=== PATIENT | female | born 1970 | race Caucasian/White ===

== ENCOUNTER 2016-12-03 20:36 | Inpatient (IN) | payer BC ==
[2016-12-03] MEDS ORDERED: 0.9 % SODIUM CHLORIDE 1,000 ML BAG IV ONE (20:50)
[2016-12-03 21:02] LABS: EOS % 1.3 % (0-6); GRAN % 55.5 % (47-80); HEMATOCRIT 37.3 % (35.0-47.0); HEMOGLOBIN 12.1 gm/dl (11.6-16.0); LYMPH % 34.7 % (16-45); MEAN CELL VOLUME 83.1 fl (81-97); MEAN CORPUSCULAR HEMOGLOBIN 26.9 pg (27-33); MEAN CORPUSCULAR HGB CONC 32.4 g/dl (32-36); MEAN PLATELET VOLUME 9.5 fl (7.4-10.4); MONO % 7.5 % (0-9); PLATELET COUNT 413 K/uL (130-400); RED BLOOD COUNT 4.49 M/uL (3.80-5.40); RED CELL DISTRIBUTION WIDTH 19.8 % (11.5-14.5); WHITE BLOOD COUNT W/O DIFF 6.2 K/uL (4.2-12.2)
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
[2016-12-03 21:11] LABS: ALB/GLOB RATIO 1.5 (1.1-1.8); ALBUMIN 4.5 gm/dL (3.5-5.0); ALKALINE PHOSPHATASE 72 U/L (38-126); ALT/SGPT 24 U/L (9-52); ANION GAP 14.9 (7-16); AST/SGOT 19 U/L (14-36); BILIRUBIN,TOTAL 0.61 mg/dL (0.2-1.3); BLOOD UREA NITROGEN 10 mg/dL (7-17); CARBON DIOXIDE 20.1 mmol/L (22-30); CREATININE 0.7 mg/dL (0.52-1.04); EST GLOMERULAR FILTRATION RATE > 60 ml/min; GLUCOSE,RANDOM 109 mg/dL (70-110); TOTAL PROTEIN 7.6 gm/dL (6.3-8.2)
[2016-12-03 21:13] LABS: ACETAMINOPHEN < 10.0 ug/mL (10.0-30.0); ALCOHOL 0.158 g/dL (0-0.010); SALICYLATE < 1.0 mg/dL (2.8-20.0)
[2016-12-03] MEDS ORDERED: 0.9 % SODIUM CHLORIDE 1000ML 1,000 ML IV ONE (21:21)
[2016-12-03 21:46] LABS: URINE APPEARANCE CLEAR; URINE BILIRUBIN NEGATIVE (NEGATIVE); URINE BLOOD NEGATIVE (NEGATIVE); URINE COLOR YELLOW; URINE GLUCOSE (UA) NEGATIVE (NEGATIVE); URINE KETONE NEGATIVE (NEGATIVE); URINE LEUKOCYTE ESTERASE NEGATIVE (NEGATIVE); URINE NITRITE NEGATIVE (NEGATIVE); URINE PROTEIN NEGATIVE (NEGATIVE); URINE UROBILINOGEN 0.2 E.U./dL (0.20 - 1.00)
[2016-12-03 21:53] LABS: AMPHETAMINE SCREEN URINE NOT DETECTED; BARBITURATE SCREEN URINE NOT DETECTED; BENZODIAZEPINE SCREEN URINE NOT DETECTED; COCAINE SCREEN URINE DETECTED; METHADONE SCREEN URINE NOT DETECTED; METHAMPHETAMINE SCREEN NOT DETECTED; OPIATE SCREEN URINE NOT DETECTED; OXYCODONE SCREEN URINE NOT DETECTED; PHENCYCLIDINE SCREEN URINE NOT DETECTED; PROPOXYPHENE SCREEN URINE NOT DETECTED; THC SCREEN URINE NOT DETECTED; TRICYCLIC ANTIDEPRESSANT SCRN DETECTED
[2016-12-04] MEDS ORDERED: 0.9 % SODIUM CHLORIDE 1000ML 1,000 ML IV PRN (00:05)
[2016-12-04 06:35] LABS: BASO % 0.4 % (0-6); EOS % 1.3 % (0-6); GRAN % 62.8 % (47-80); HEMATOCRIT 34.4 % (35.0-47.0); HEMOGLOBIN 11.2 gm/dl (11.6-16.0); LYMPH % 27.9 % (16-45); MEAN CELL VOLUME 83.7 fl (81-97); MEAN CORPUSCULAR HGB CONC 32.6 g/dl (32-36); MEAN PLATELET VOLUME 9.7 fl (7.4-10.4); MONO % 7.6 % (0-9); PLATELET COUNT 404 K/uL (130-400); RED BLOOD COUNT 4.11 M/uL (3.80-5.40); RED CELL DISTRIBUTION WIDTH 20.4 % (11.5-14.5); WHITE BLOOD COUNT W/O DIFF 7.6 K/uL (4.2-12.2)
[2016-12-04 06:40] LABS: ANION GAP 9.9 (7-16); BLOOD UREA NITROGEN 10 mg/dL (7-17); CARBON DIOXIDE 21.1 mmol/L (22-30); CREATININE 0.7 mg/dL (0.52-1.04); EST GLOMERULAR FILTRATION RATE > 60 ml/min; GLUCOSE,RANDOM 101 mg/dL (70-110)
[2016-12-04 06:41] LABS: MEAN CORPUSCULAR HEMOGLOBIN 27.2 pg (27-33)
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
[2016-12-04 11:40] LABS: ANION GAP 11.6 (7-16); BLOOD UREA NITROGEN 10 mg/dL (7-17); CARBON DIOXIDE 20.4 mmol/L (22-30); CREATININE 0.8 mg/dL (0.52-1.04); EST GLOMERULAR FILTRATION RATE > 60 ml/min; GLUCOSE,RANDOM 95 mg/dL (70-110)
[2016-12-04] MEDS ORDERED: SOD CHLOR 0.9% WITH KCL 40MEQ 40 MEQ/1,000 ML IV.SOLN IV SCH (12:00)
[2016-12-04] MEDS: 0.9 % SODIUM CHLORIDE 1000ML 1,000 ML IV PRN ×2 (12:22→21:13)
[2016-12-04] MEDS ORDERED: DIPHENHYDRAMINE HCL IV 50 MG/ML VIAL IVP PRN (21:34)
[2016-12-04 23:01] LABS: ANION GAP 9.4 (7-16); BLOOD UREA NITROGEN 7 mg/dL (7-17); CARBON DIOXIDE 21.6 mmol/L (22-30); CREATININE 0.8 mg/dL (0.52-1.04); EST GLOMERULAR FILTRATION RATE > 60 ml/min; GLUCOSE,RANDOM 86 mg/dL (70-110)
[2016-12-04] MEDS: LORAZEPAM 2 MG/ML VIAL IV PRN (23:11)
[2016-12-05] MEDS: 0.9 % SODIUM CHLORIDE 1000ML 1,000 ML IV PRN (05:32)
--- NOTE | 2016-12-05 07:43 | RADIOLOGY REPORT ---
EXAM: CHEST HISTORY: OVERDOSE. PATIENT UNRESPONSIVE. TECHNIQUE: A single view of the chest was obtained. Comparison: 03/14/16. FINDINGS: The heart is not enlarged and there is no mediastinal mass. No infiltrate or vascular congestion identified. IMPRESSION: UNREMARKABLE CHEST EXAMINATION. JOB NUMBER: [id number] MTDD
[2016-12-05] MEDS: LORAZEPAM 2 MG/ML VIAL IV PRN (08:26)
--- NOTE | 2016-12-05 08:40 | Physician Progress Note ---
Subjective - Date Date of Physician Progress Note: 12/05/16 - Subjective Subjective Comment: Patient is awake and alert today. She has coherent speech but thought process remains abnormal. Patient has been talking about going to boot camp classes, eating tv dinners, etc. Does not respond directly to questions. She is following commands and has been up with assistance to the bathroom. she continues to have some spontaneous dystonic movements. wringing of the hands, and has been trying to get out of bed and pull her IV out several times. Objective - Vital Signs Vital Signs: Vital Signs - Last 24 Hrs Temp Pulse Resp BP Pulse Ox 12/05/16 04:00 99.1 F 89 20 132/92 100 12/04/16 21:04 98.1 F 99 H 16 121/87 100 12/04/16 21:00 95 H 12/04/16 18:00 98.3 F 95 H 18 141/89 99 12/04/16 14:24 98.8 F 105 H 14 145/80 100 12/04/16 12:19 98.1 F 119 H 14 139/69 100 - General General Appearance: Alert, Cooperative, No acute distress Limitations: Altered mental status - Head Head exam: Atraumatic, Normocephalic - Eye Eye exam: Normal appearance, PERRL - ENT Throat exam: Normal inspection. negative: Tonsillar erythema, Tonsillar exudate - Neck Neck exam: Normal inspection, Full ROM. negative: Tenderness - Respiratory Respiratory exam: Normal lung sounds bilaterally. negative: Respiratory distress - Cardiovascular Cardiovascular Exam: Regular rate, Normal rhythm, Normal heart sounds - GI/Abdominal GI/Abdominal exam: Soft, Normal bowel sounds. negative: Tenderness - Neurological Neurological exam: Altered, CN II-XII intact, Reflexes normal, Other (has some spontaneous dystonic movement ). negative: Alert, Normal gait, Oriented X3 Assessment and Plan - Assessment and Plan (1) Antipsychotic overdose Current Visit: Yes Status: Acute Qualifiers: Encounter type: initial encounter Injury intent: intentional self-harm Qualified Code(s): T43.502A - Poisoning by unspecified antipsychotics and neuroleptics, intentional self-harm, initial encounter Base Code: T43.501A - POISONING BY UNSP ANTIPSYCHOT/NEUROLEPT, ACCIDENTAL, INIT Comment: 12/05/16- improved. patient is awake and alert today. she is tolerating clear liquids. had anand removed and is urinating normally, not incontinent. No BM as of yet. Blood pressure, temp, heart rate and respiratory rate are all within normal. She does have some spontanous dystonic movements on exam. no signs of neuroleptic malignant syndrome. once patient is stabilized she will need to be transfered to inpatient psychiatry unit. Case management working on placement -potassium low at 3.4 today. will add 20meq per liter NS -WBC up to 14 likely reactive. will get UA with recent anand use. anand has been removed and urinating normally -continue cardiac monitoring. repeat EKG today. -continue IV NS at 125cc/hr -BMP q8H. -seizure precautions -benadryl 50mg IV q8H for extrapyramidal symptoms -lorazapam 1mg IV q8H for severe agitation -nursing to contact me if she has increased temperature, profuse sweating, limb rigidity, worsening tachycardia, seizure like activity. (2) Full code status Current Visit: Yes Status: Acute Base Code: Z78.9 - OTHER SPECIFIED HEALTH STATUS Comment: 12/05/16- patient is full code (3) DVT prophylaxis Current Visit: Yes Status: Acute Base Code: [id number] - Comment: 12/05/16- lovenox 40mg sq daily Results - Labs Result Diagrams: 12/05/16 09:05 12/05/16 09:05 Labs Last 24 Hours: Laboratory Results - last 24 hr 12/04/16 12/04/16 11:20 22:49 Sodium 142 138 Potassium 4.3 4.0 Chloride 110 H 107 Carbon Dioxide 20.4 L 21.6 L Anion Gap 11.6 9.4 BUN 10 7 Creatinine 0.8 0.8 Estimated GFR > 60 > 60 Random Glucose 95 86 Calcium 8.6 8.8 DVT/PE Assessment - Risk for VTE Risk for VTE: No Risk Level: High Risk Assessment Date: 12/04/16 Risk Assessment Time: 21:42 VTE Orders Placed or Will Be Placed: Yes - Active Medicaitons Current Medications: Current Medications Diphenhydramine HCl (Benadryl Iv) 50 mg IVP Q8H JESSICA Sodium Chloride () 1,000 mls @ 125 mls/hr IV .Q8H PRN PRN Reason: LARGE VOLUME IV Last Admin: 12/05/16 05:32 Dose: 125 mls/hr Lorazepam (Ativan) 1 mg IV Q8H PRN PRN Reason: Agitation Last Admin: 12/05/16 08:26 Dose: 1 mg AMI Plan - Labs Result Diagrams: 12/05/16 09:05 12/05/16 09:05
[2016-12-05] MEDS ORDERED: DIPHENHYDRAMINE HCL IV 50 MG/ML VIAL IVP SCH (08:45)
[2016-12-05 09:25] LABS: BLOOD UREA NITROGEN 5 mg/dL (7-17); CREATININE 0.7 mg/dL (0.52-1.04); EST GLOMERULAR FILTRATION RATE > 60 ml/min; GLUCOSE,RANDOM 102 mg/dL (70-110)
[2016-12-05 09:29] LABS: RED BLOOD COUNT 4.05 M/uL (3.80-5.40); WHITE BLOOD COUNT W/O DIFF 14.8 K/uL (4.2-12.2)
[2016-12-05 09:30] LABS: HEMATOCRIT 33.8 % (35.0-47.0); MEAN CELL VOLUME 83.5 fl (81-97); MEAN CORPUSCULAR HEMOGLOBIN 27.2 pg (27-33); MEAN CORPUSCULAR HGB CONC 32.5 g/dl (32-36); MEAN PLATELET VOLUME 9.1 fl (7.4-10.4); PLATELET COUNT 377 K/uL (130-400); RED CELL DISTRIBUTION WIDTH 20.6 % (11.5-14.5)
[2016-12-05] MEDS ORDERED: LORAZEPAM 2 MG/ML VIAL IV PRN (13:07)
[2016-12-05] MEDS ORDERED: DIPHENHYDRAMINE HCL IV 50 MG/ML VIAL IVP PRN (13:07)
[2016-12-05] MEDS ORDERED: LORAZEPAM 2 MG/ML VIAL IV ONE (13:27)
[2016-12-05] MEDS: POTASSIUM CHL 20MEQ IN 1L NS 20 MEQ/1,000 ML BAG IV SCH ×2 (13:49→22:27)
[2016-12-05 14:34] LABS: URINE APPEARANCE CLEAR; URINE BILIRUBIN NEGATIVE (NEGATIVE); URINE BLOOD SMALL (NEGATIVE); URINE COLOR YELLOW; URINE GLUCOSE (UA) NEGATIVE (NEGATIVE); URINE KETONE NEGATIVE (NEGATIVE); URINE LEUKOCYTE ESTERASE NEGATIVE (NEGATIVE); URINE NITRITE NEGATIVE (NEGATIVE); URINE PROTEIN NEGATIVE (NEGATIVE); URINE UROBILINOGEN 0.2 E.U./dL (0.20 - 1.00)
[2016-12-05 14:45] LABS: URINE BACTERIA FEW; URINE WBC 0 - 2 (0-2/hpf)
--- NOTE | 2016-12-06 09:55 | Discharge Summary ---
Providers Discharge Summary Date: 12/06/16 Date of admission: 12/04/16 00:15 Attending physician: CORDELL RUEDA Consults: Consult Orders 12/04/16 21:53 Consult NOW Consulting Provider: [facility] Mental/Behavioral Health Physician Instructions: social work consult for inpatient psych placement Reason For Exam: suicidal overdose Physical Exam - Vital Signs Vital Signs: Vital Signs - Last 24 Hrs Temp Pulse Resp BP Pulse Ox 12/06/16 00:00 87 18 120/89 99 12/05/16 21:00 86 12/05/16 16:00 97.3 F L 106 H 20 127/81 97 12/05/16 12:00 97.9 F 103 H 22 112/84 98 - General General Appearance: Alert, Cooperative, No acute distress Limitations: Altered mental status - Head Head exam: Atraumatic, Normocephalic - Eye Eye exam: Normal appearance, PERRL - ENT Throat exam: Normal inspection. negative: Tonsillar erythema, Tonsillar exudate - Neck Neck exam: Normal inspection, Full ROM. negative: Tenderness - Respiratory Respiratory exam: Normal lung sounds bilaterally. negative: Respiratory distress - Cardiovascular Cardiovascular Exam: Regular rate, Normal rhythm, Normal heart sounds - GI/Abdominal GI/Abdominal exam: Soft, Normal bowel sounds. negative: Tenderness - Neurological Neurological exam: Altered, CN II-XII intact, Reflexes normal, Other (has some spontaneous dystonic movement ). negative: Alert, Normal gait, Oriented X3 Hospitalization - Hospitalization Admission Diagnosis: 1. Acute Overdose due to Suicidal Ideation. - Problem List/Discharge Diagnosis (1) Antipsychotic overdose Current Visit: Yes Status: Acute Discharge Diagnosis: Encounter type: initial encounter Injury intent: intentional self-harm Qualified Code(s): T43.502A - Poisoning by unspecified antipsychotics and neuroleptics, intentional self-harm, initial encounter Base Code: T43.501A - POISONING BY UNSP ANTIPSYCHOT/NEUROLEPT, ACCIDENTAL, INIT Comment: 12/06/16- improved. patient is awake and alert today. she is tolerating clear liquids. had anand removed and is urinating normally, not incontinent. No BM as of yet. Blood pressure, temp, heart rate and respiratory rate are all within normal. Alert and oriented x 3 for first time. aware she had been halucinating prior. no signs of neuroleptic malignant syndrome. since patient now stabilized will transfer to inpatient psychiatry unit. Case management working on placement -potassium low at 3.4 today. will add 20meq per liter NS -WBC up to 14 likely reactive. will get UA with recent anand use. anand has been removed and urinating normally -continue cardiac monitoring. repeat EKG today. -continue IV NS at 125cc/hr -BMP q8H. -seizure precautions -benadryl 50mg IV q8H for extrapyramidal symptoms -lorazapam 1mg IV q8H for severe agitation -nursing to contact me if she has increased temperature, profuse sweating, limb rigidity, worsening tachycardia, seizure like activity. (2) Overdose Current Visit: Yes Status: Acute Discharge Diagnosis: Encounter type: initial encounter Injury intent: intentional self-harm Qualified Code(s): T50.902A - Poisoning by unspecified drugs, medicaments and biological substances, intentional self-harm, initial encounter Base Code: T50.901A - POISONING BY UNSP DRUG/MEDS/BIOL SUBST, ACCIDENTAL, INIT (3) Bipolar 1 disorder Current Visit: No Status: Acute Base Code: F31.9 - BIPOLAR DISORDER, UNSPECIFIED - Hospitalization Course Disposition: Psychiatric Hospital Procedures: Cardiology Procedures 12/04/16 02:11 EKG NOW 12/05/16 12:14 EKG NOW Abnormal Labs: Abnormal Lab Results 12/04/16 12/04/16 12/04/16 Range/Units 06:05 06:05 11:20 WBC (4.2-12.2) K/uL Hgb 11.2 L (11.6-16.0) gm/dl Hct 34.4 L (35.0-47.0) % RDW 20.4 H (11.5-14.5) % Plt Count 404 H (130-400) K/uL Neutrophils % (47-80) % Lymphocytes % (16-45) % Potassium (3.5-5.1) mmol/L Chloride 111 H 110 H (98-107) mmol/L Carbon Dioxide 21.1 L 20.4 L (22-30) mmol/L BUN (7-17) mg/dL Calcium 8.2 L (8.5-10.1) mg/dL Urine Blood (NEGATIVE) 12/04/16 12/05/16 12/05/16 Range/Units 22:49 09:05 09:05 WBC 14.8 H (4.2-12.2) K/uL Hgb 11.0 L (11.6-16.0) gm/dl Hct 33.8 L (35.0-47.0) % RDW 20.6 H (11.5-14.5) % Plt Count (130-400) K/uL Neutrophils % 88.0 H (47-80) % Lymphocytes % 8.0 L (16-45) % Potassium 3.4 L (3.5-5.1) mmol/L Chloride (98-107) mmol/L Carbon Dioxide 21.6 L (22-30) mmol/L BUN 5 L (7-17) mg/dL Calcium (8.5-10.1) mg/dL Urine Blood (NEGATIVE) 12/05/16 Range/Units 14:20 WBC (4.2-12.2) K/uL Hgb (11.6-16.0) gm/dl Hct (35.0-47.0) % RDW (11.5-14.5) % Plt Count (130-400) K/uL Neutrophils % (47-80) % Lymphocytes % (16-45) % Potassium (3.5-5.1) mmol/L Chloride (98-107) mmol/L Carbon Dioxide (22-30) mmol/L BUN (7-17) mg/dL Calcium (8.5-10.1) mg/dL Urine Blood Small H (NEGATIVE) Condition at Discharge: (2) Stable Discharge Medications - Discharge Medications Home Medications: Ambulatory Orders Duloxetine HCl [Cymbalta] 60 mg PO BID 04/21/14 [Last Taken 12/03/16] Discharge Plan - Discharge Instructions Activity at Discharge: Increase Activity as Tolerated Diet at Discharge: Advance to Usual Diet
[2016-12-06] MEDS: POTASSIUM CHL 20MEQ IN 1L NS 20 MEQ/1,000 ML BAG IV SCH ×3 (17:14→23:24)
[2016-12-06 18:33] LABS: ANION GAP 12.5 (7-16); BLOOD UREA NITROGEN 9 mg/dL (7-17); CARBON DIOXIDE 24.5 mmol/L (22-30); CREATININE 0.7 mg/dL (0.52-1.04); EST GLOMERULAR FILTRATION RATE > 60 ml/min; GLUCOSE,RANDOM 92 mg/dL (70-110)
[2016-12-07 06:34] LABS: ANION GAP 14.9 (7-16); BLOOD UREA NITROGEN 12 mg/dL (7-17); CARBON DIOXIDE 21.1 mmol/L (22-30); CREATININE 0.8 mg/dL (0.52-1.04); EST GLOMERULAR FILTRATION RATE > 60 ml/min; GLUCOSE,RANDOM 75 mg/dL (70-110)
== END 2016-12-07 11:44 | DRG 918 ==
LOC: ER 20:36 → MEDSURG 12-04 00:15 → OBSVTOIN 12-04 00:15 → MEDSURG 12-04 22:28
PROVIDERS: ADMIT Family Medicine; ATTEND Family Medicine
DX: T43.592A Poisoning by other antipsychotics and neuroleptics, intentional self-harm, initial encounter (principal); T43.212A Poisoning by selective serotonin and norepinephrine reuptake inhibitors, intentional self-harm, initial encounter; T51.92XA Toxic effect of unspecified alcohol, intentional self-harm, initial encounter; F31.9 Bipolar disorder, unspecified
CPT/HCPCS: 71010; 80048; 80053; 80305; 80320; 80329; 81001; 81003; 81025; 82550; 85025; 85027; 93005; 93010; 94761; 96361; 96374; 96375; 99223; 99233; 99239; 99285; J1200; J7030

== ENCOUNTER 2017-09-29 17:20 | Emergency (ER) | payer BC, MEDICAID ==
[2017-09-29] MEDS ORDERED: 0.9 % SODIUM CHLORIDE 1,000 ML BAG IV ONE ×3 (17:32→19:43)
[2017-09-29 18:03] LABS: URINE APPEARANCE CLEAR; URINE BILIRUBIN SMALL (NEGATIVE); URINE BLOOD NEGATIVE (NEGATIVE); URINE COLOR YELLOW; URINE GLUCOSE (UA) NEGATIVE (NEGATIVE); URINE KETONE 15 mg/dL (NEGATIVE); URINE LEUKOCYTE ESTERASE NEGATIVE (NEGATIVE); URINE NITRITE NEGATIVE (NEGATIVE); URINE PROTEIN NEGATIVE (NEGATIVE); URINE UROBILINOGEN 0.2 E.U./dL (0.20 - 1.00)
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
[2017-09-29 18:04] LABS: BASO % 0.1 % (0-6); HEMOGLOBIN 15.9 gm/dl (11.6-16.0); LYMPH % 4.3 % (16-45); MEAN CELL VOLUME 91.6 fl (81-97); MEAN CORPUSCULAR HGB CONC 33.8 g/dl (32-36); MEAN PLATELET VOLUME 9.4 fl (7.4-10.4); MONO % 5.1 % (0-9); PLATELET COUNT 283 K/uL (130-400); RED BLOOD COUNT 5.13 M/uL (3.80-5.40)
[2017-09-29 18:05] LABS: ARTERIAL BLOOD GAS BASE EXCESS -2.2 mmol/L (-2 - 3); ARTERIAL BLOOD GAS HCO3 21.1 mmol/L (18-23); ARTERIAL BLOOD GAS PCO2 33.9 mmHg (35-48); ARTERIAL BLOOD GAS pH 7.41 (7.35-7.45); CARBOXYHEMOGLOBIN 1.4 % (0-1.5); METHEMOGLOBIN 0.7 % (0.0-1.5); TOTAL HEMOGLOBIN 14.8 g/dl (11.6-16)
[2017-09-29 18:07] LABS: ARTERIAL BLD GAS O2 SATURATION 82.8 % (95-98)
[2017-09-29 18:08] LABS: ALLEN TEST PASS
[2017-09-29 18:10] LABS: BARBITURATE SCREEN URINE NOT DETECTED; BENZODIAZEPINE SCREEN URINE NOT DETECTED; METHADONE SCREEN URINE NOT DETECTED; THC SCREEN URINE DETECTED; TRICYCLIC ANTIDEPRESSANT SCRN DETECTED
[2017-09-29 18:11] LABS: AMPHETAMINE SCREEN URINE NOT DETECTED; COCAINE SCREEN URINE NOT DETECTED; METHAMPHETAMINE SCREEN NOT DETECTED; OPIATE SCREEN URINE NOT DETECTED; OXYCODONE SCREEN URINE NOT DETECTED; PHENCYCLIDINE SCREEN URINE NOT DETECTED; PROPOXYPHENE SCREEN URINE DETECTED
[2017-09-29 18:16] LABS: ALBUMIN 4.5 g/dL (4.0-5.0); ALKALINE PHOSPHATASE 70 U/L (35-104); ALT/SGPT 12 U/L (<33); AST/SGOT 16 U/L (10.0-35.0); BLOOD UREA NITROGEN 25 mg/dL (6-20); CREATINE PHOSPHOKINASE 296 U/L (26-192)
[2017-09-29 18:17] LABS: ALB/GLOB RATIO 1.3 (1.1-1.8); CREATININE 0.8 mg/dL (0.5-0.9); EST GLOMERULAR FILTRATION RATE > 60 mL/min; GLUCOSE,RANDOM 105 mg/dL (74-109); TOTAL PROTEIN 7.9 g/dL (6.6-8.7)
[2017-09-29 18:19] LABS: ACETAMINOPHEN < 5.0 ug/mL (10.0-30.0); SALICYLATE < 0.3 mg/dL (2.8-20); VALPROIC ACID (DEPAKENE) < 2.8 ug/mL (50.0-100.0)
[2017-09-29 18:22] LABS: WHITE BLOOD COUNT W/O DIFF 24.3 K/uL (4.2-12.2)
[2017-09-29] MEDS ORDERED: CEFTRIAXONE SODIUM 1 GM in 0.9 % SODIUM CHLORIDE 100ML 100 ML IVPB ONE (18:22)
[2017-09-29] MEDS ORDERED: AZITHROMYCIN 500 MG in 0.9 % SODIUM CHLORIDE 250ML 250 ML IVPB ONE (18:23)
[2017-09-29] MEDS ORDERED: LORAZEPAM 2 MG/ML VIAL IV ONE ×4 (18:48→19:17)
[2017-09-29] MEDS ORDERED: ETOMIDATE 20MG/10ML VIAL IVP ONE (18:48)
[2017-09-29] MEDS ORDERED: SUCCINYLCHOLINE 20 MG/ML 10ML IVP ONE (18:49)
[2017-09-29] MEDS ORDERED: MAGNESIUM SULFATE 16 MEQ in 0.9 % SODIUM CHLORIDE 100ML 100 ML IV ONE (19:16)
[2017-09-29] MEDS ORDERED: FENTANYL PF 100MCG/2ML VIAL IVP ONE ×2 (19:17→19:27)
--- NOTE | 2017-09-30 23:24 | RADIOLOGY REPORT ---
EXAM: CHEST 1 VIEW HISTORY: DIFFICULTY IN BREATHING, UNRESPONSIVE. TECHNIQUE: Single AP portable view of the chest. COMPARISON: Portable chest 12/03/16. FINDINGS: Heart size is normal. There is some scattered infiltrate in the left lower lung, probably predominately in the lower lobe, presumably representing pneumonitis. Follow-up films are suggested to demonstrate clearing, preferably upright PA and lateral when clinically feasible. Overall, relatively deep inspiration taken, which could represent some underlying COPD. No definite pleural effusion or pneumothorax identified. IMPRESSION: 1. INFILTRATE IN THE LEFT LOWER LUNG, PROBABLY IN THE LEFT LOWER LOBE, LIKELY REPRESENTING PNEUMONITIS. FOLLOW-UP FILMS SUGGESTED TO DEMONSTRATE CLEARING. 2. DEEP INSPIRATION. JOB NUMBER: [id number] MTDD
--- NOTE | 2017-10-02 07:26 | RADIOLOGY REPORT ---
DATE: 09/29/2017 at 7:10 p.m. EXAM: PORTABLE CHEST. HISTORY: Endotracheal tube placement. TECHNIQUE: Single AP portable view of the chest. COMPARISON: Single view of the chest dated 09/29/2017 at 5:54 p.m. earlier this evening. Report of the prior study, however, is not as yet available within PACS. FINDINGS: Since the prior study an endotracheal tube has been placed with the tip located well above the ricardo. Persistent infiltrate in the left lower lobe which at the left base has decreased in the interval with better visualization of the left hemidiaphragm, but probably with some increase in infiltrate in the infrahilar region of the left lung. Some of this is just due to overlying breast density however. The right lung continues to appear essentially clear. Lung apices not entirely included on the study. Mild thoracic curve to the right. Deep inspiration again taken. IMPRESSION: 1. ENDOTRACHEAL TUBE NOW PLACED WITH THE TIP WELL ABOVE THE RICARDO. 2. SOME CLEARING OF PREVIOUSLY SEEN INFILTRATE IN THE LEFT LOWER LOBE INFERIORLY WITH BETTER VISUALIZATION OF THE LEFT HEMIDIAPHRAGM, PROBABLY SLIGHT INCREASE IN INFILTRATE IN THE LEFT INFRAHILAR REGION OF THE LOWER LOBE. CONTINUED FOLLOWUP SUGGESTED. JOB NUMBER: [id number] MTDD
== END 2017-09-29 20:12 | disposition short-term general hospital (02) ==
LOC: ER 17:20
DX: T50.902A Poisoning by unspecified drugs, medicaments and biological substances, intentional self-harm, initial encounter (principal); R06.00 Dyspnea, unspecified; F31.9 Bipolar disorder, unspecified; Y92.009 Unspecified place in unspecified non-institutional (private) residence as the place of occurrence of the external cause; Z87.891 Personal history of nicotine dependence
CPT/HCPCS: 51702; 31500 ×2; 99291 ×2; 96365; 96366; 96375; 96361; 96368; 99292; 82550; 82375; 80053; 81003; 82803; 84703; 80305; 80164; 85027; 71045; 36600; 94002; 93005; 93010; G0480 ×3; J3010; J2060; 80320; 80329; J0330; J0456; J7030; J7050